=== PATIENT | female | born 1965 | race African-American/Black ===

== ENCOUNTER 2019-01-19 08:04 | Emergency (ER) | payer SELFPAY ==
[~2019-01-19] VITALS: Ht 165.1 cm; Wt 90.7 kg
[2019-01-19 08:15] VITALS: BP 139/84
--- NOTE | 2019-01-19 08:45 | PHYS DOC ---
Past History Past Medical History: Diabetes, High Cholesterol, Hypertension Past Surgical History: No Surgical History Alcohol Use: None Drug Use: None Adult General Chief Complaint Chief Complaint: FLANK PAIN HPI HPI 53-year-old female presents with left flank pain. The patient woke up this morning with this pain. She denies any trauma or falls. It is a deeper cramping pain. She is concerned because she has had kidney stones and UTIs in the past. She states that the pain feels similar. She denies nausea or vomiting. She has not had fever or chills. Review of Systems Review of Systems Constitutional: Denies fever or chills [] Eyes: Denies change in visual acuity, redness, or eye pain [] HENT: Denies nasal congestion or sore throat [] Respiratory: Denies cough or shortness of breath [] Cardiovascular: No additional information not addressed in HPI [] GI: Denies abdominal pain, nausea, vomiting, bloody stools or diarrhea [] : Denies dysuria or hematuria [] Musculoskeletal: Left flank pain[] Integument: Denies rash or skin lesions [] Neurologic: Denies headache, focal weakness or sensory changes [] Endocrine: Denies polyuria or polydipsia [] All other systems were reviewed and found to be within normal limits, except as documented in this note. Physical Exam Physical Exam Constitutional: Well developed, obese, well nourished, no acute distress, non- toxic appearance. [] HENT: Normocephalic, atraumatic, bilateral external ears normal, oropharynx moist, no oral exudates, nose normal. [] Eyes: PERRLA, EOMI, conjunctiva normal, no discharge. [] Neck: Normal range of motion, no tenderness, supple, no stridor. [] Cardiovascular:Heart rate regular rhythm, no murmur [] Lungs & Thorax: Bilateral breath sounds clear to auscultation [] Abdomen: Bowel sounds normal, soft, no tenderness, no masses, no pulsatile masses. [] Skin: Warm, dry, no erythema, no rash. [] Back: No tenderness, Left sided CVA tenderness. [] Extremities: No tenderness, no cyanosis, no clubbing, ROM intact, no edema. [] Neurologic: Alert and oriented X 3, normal motor function, normal sensory function, no focal deficits noted. [] Psychologic: Affect normal, judgement normal, mood normal. [] Current Patient Data Vital Signs Vital Signs Date Time Temp Pulse Resp B/P (MAP) Pulse Ox O2 Delivery O2 Flow Rate FiO2 01/19/19 08:15 Room Air 01/19/19 08:15 98.1 81 20 100 EKG EKG [] Radiology/Procedures Radiology/Procedures [] Impressions: EXAM: CT ABDOMEN/PELVIS WITHOUT CONTRAST. HISTORY: Left flank pain, renal stones. TECHNIQUE: Computed tomography of the abdomen and pelvis was performed without intravenous contrast. COMPARISON: None. FINDINGS: Lung windows through the visualized portions of the bases reveal no abnormality. Bone windows reveal no suspicious lesions. A cyst in the left renal lower pole measures 2.6 cm. No solid renal lesions are appreciated without contrast. There are no renal or ureteral calculi. There is no hydronephrosis. Hypoattenuation of the hepatic parenchyma indicates somewhat heterogeneous moderate diffuse hepatic steatosis. There is focal fatty sparing about the gallbladder fossa and scattered in the left lobe. Gallstones are noted. There is no pericholecystic inflammation or biliary dilatation. The pancreas, adrenal glands and spleen are unremarkable without contrast. There are no pathologically enlarged lymph nodes. A calcification along the right aspect of the uterus measures 1.7 cm and suggests a degenerated fibroid. The appendix is not inflamed. There is no small bowel obstruction. IMPRESSION: 1. No renal or ureteral calculi. No hydronephrosis. 2. Cholelithiasis without evidence of acute cholecystitis by CT. 3. Moderate, heterogeneous diffuse hepatic steatosis. 4. 1.7 cm calcified uterine fibroid. *One or more of the following individualized dose reduction techniques were utilized for this examination: 1. Automated exposure control. 2. Adjustment of the mA and/or kV according to patient size. 3. Use of iterative reconstruction technique. Electronically signed by: Tracie Martin MD (01/19/2019 9:28 AM) [facility] DICTATED AND SIGNED BY: GRUPO MARTIN MD DATE: [birth year]28 CC: ZAMZAM CARLISLE DO; CARROL LAZARO MD ~ Course & Med Decision Making Course & Med Decision Making Pertinent Labs and Imaging studies reviewed. (See chart for details) The patient's CT scan is negative for kidney stones. See official report for other incidental findings. Her urinalysis is negative for infection. This is likely musculoskeletal. I have given her 60 mg of Toradol IM. I believe the patient can manage his pain with Tylenol and ibuprofen. She is stable for discharge at this time. [] Dragon Disclaimer Dragon Disclaimer This electronic medical record was generated, in whole or in part, using a voice recognition dictation system. Departure Departure: Impression: Primary Impression: Left flank pain Additional Impressions: Kidney cysts Uterine fibroid Disposition: HOME, SELF-CARE Condition: STABLE Referrals: CARROL LAZARO MD (PCP) Patient Instructions: Flank Pain, [id number] Problem Qualifiers Additional Impressions: Uterine fibroid Uterine leiomyoma location: unspecified location Qualified Codes: D25.9 - Leiomyoma of uterus, unspecified ZAMZAM CARLISLE DO Jan 19, 2019 08:45
[2019-01-19] MEDS ORDERED: KETOROLAC 60 MG/2 ML VIAL. IM ONE ×2 (09:04→09:30)
--- NOTE | 2019-01-19 09:31 | RAD ---
EXAM: CT ABDOMEN/PELVIS WITHOUT CONTRAST. HISTORY: Left flank pain, renal stones. TECHNIQUE: Computed tomography of the abdomen and pelvis was performed without intravenous contrast. COMPARISON: None. FINDINGS: Lung windows through the visualized portions of the bases reveal no abnormality. Bone windows reveal no suspicious lesions. A cyst in the left renal lower pole measures 2.6 cm. No solid renal lesions are appreciated without contrast. There are no renal or ureteral calculi. There is no hydronephrosis. Hypoattenuation of the hepatic parenchyma indicates somewhat heterogeneous moderate diffuse hepatic steatosis. There is focal fatty sparing about the gallbladder fossa and scattered in the left lobe. Gallstones are noted. There is no pericholecystic inflammation or biliary dilatation. The pancreas, adrenal glands and spleen are unremarkable without contrast. There are no pathologically enlarged lymph nodes. A calcification along the right aspect of the uterus measures 1.7 cm and suggests a degenerated fibroid. The appendix is not inflamed. There is no small bowel obstruction. IMPRESSION: 1. No renal or ureteral calculi. No hydronephrosis. 2. Cholelithiasis without evidence of acute cholecystitis by CT. 3. Moderate, heterogeneous diffuse hepatic steatosis. 4. 1.7 cm calcified uterine fibroid. *One or more of the following individualized dose reduction techniques were utilized for this examination: 1. Automated exposure control. 2. Adjustment of the mA and/or kV according to patient size. 3. Use of iterative reconstruction technique. Electronically signed by: Tracie Martin MD (01/19/2019 9:28 AM) [facility]
[2019-01-19 11:26] LABS: BILIRUBIN,URINE NEG (NEG); CLARITY,URINE CLEAR; COLOR,URINE YELLOW; GLUCOSE,URINE NEG (NEG); NITRITE,URINE NEG (NEG); UROBILINOGEN,URINE 0.2 mg/dL (0.2 mg/dL)
== END 2019-01-19 10:00 | disposition home or self-care (01) ==
LOC: ER 08:04
DX: N28.1 Cyst of kidney, acquired (principal); D25.9 Leiomyoma of uterus, unspecified; K80.20 Calculus of gallbladder without cholecystitis without obstruction; E11.9 Type 2 diabetes mellitus without complications; E78.00 Pure hypercholesterolemia, unspecified; I10 Essential (primary) hypertension; Z87.440 Personal history of urinary (tract) infections; Z87.442 Personal history of urinary calculi
CPT/HCPCS: 74176; 81003; 96372; 99284; J1885

== ENCOUNTER 2019-03-14 23:41 | Emergency (ER) | payer OTHER ==
[~2019-03-14] VITALS: Ht 165.1 cm; Wt 90.7 kg
[2019-03-14] MEDS ORDERED: ONDANSETRON PF 4 MG/2 ML VIAL. ONE (23:51)
[2019-03-14] MEDS ORDERED: IV NORMAL SALINE 1,000ML 1,000 ML IV SCH (23:51)
[2019-03-15] MEDS ORDERED: ONDANSETRON PF 4 MG/2 ML VIAL. IV ONE
--- NOTE | 2019-03-15 00:06 | PHYS DOC ---
Past History Past Medical History: Diabetes, High Cholesterol, Hypertension Additional Past Surgical Histo: R foot Alcohol Use: None Drug Use: None Adult General Chief Complaint Chief Complaint: ABDOMINAL PAIN HPI HPI Patient is a 53 y/o AAF who arrives in the ED via EM. Pt states that this morning, she had surgery on her R foot, to correct a bunion. she states that she felt epigastric discomfort and nausea since after the surgery, and stasts she experiences a burning pain radiating across her chest occasionally. She has had nausea, but no vomiting, no diarrhea. Denies pleuritic pain or shortness of breath. There are no alleviating or exacerbating factors to her symptoms. Denies diaphoresis, or fevers. No cough. Patient states that she has had problems with "gas" in the past. The patient states that she normally does not do well with pain medication and she was prescribed oxycodone. She has been taking the oxycodone every 3 hours, as the physician/surgeon told the patient's not to get leg her pain get ahead of her, and they have been proactively taking the pain medication, even if she is not having significant pain. Review of Systems Review of Systems Constitutional: Denies fever or chills [] Eyes: Denies change in visual acuity, redness, or eye pain [] HENT: Denies nasal congestion or sore throat [] Respiratory: Denies cough or shortness of breath [] Cardiovascular: No additional information not addressed in HPI [] GI: Denies abdominal pain, other than localized to epigastric area, denies vomiting, bloody stools or diarrhea [] : Denies dysuria or hematuria [] Musculoskeletal: Denies back pain or joint pain [] Integument: Denies rash or skin lesions [] Neurologic: Denies headache, focal weakness or sensory changes [] Endocrine: Denies polyuria or polydipsia [] All other systems were reviewed and found to be within normal limits, except as documented in this note. Current Medications Current Medications Current Medications Medications (Trade) Dose Ordered Sig/Genet Start Time Stop Time Status Last Admin Dose Admin Multi-Ingredient Mouthwash/Gargle (Gi Cocktail) 20 ml 1X ONCE 03/15/19 00:00 03/15/19 00:01 UNV Ondansetron HCl (Zofran) 4 mg 1X ONCE 03/15/19 00:00 03/15/19 00:01 UNV Sodium Chloride 1,000 ml @ 1,000 mls/hr Q1H 03/14/19 23:51 03/15/19 00:50 UNV Allergies Allergies Allergies Coded Allergies Type Severity Reaction Last Updated Verified No Known Drug Allergies 01/19/19 No Physical Exam Physical Exam PHYSICAL EXAM: CONSTITUTIONAL: Well developed, well nourished HEAD: normocephalic, atraumatic EENT: PERRL, EOMI. Conjunctivae normal color, sclerae non-icteric; moist mucous membranes. NECK: Supple, non-tender; no meningismus. LUNGS: Lungs CTA, breathing even and unlabored. Normal air movement. HEART: Regular rate and rhythm, no murmur CHEST: No deformity; non-tender ABDOMEN: The abdomen is soft, there is focal epigastric tenderness to palpation, without rebound or guarding, normal bowel sounds are present, right upper quadrant is relatively nontender, Ordonez sign is absent, the lower abdomen is soft and non-tender, no masses or bruits. EXTREM: Normal ROM; no deformity, no calf tenderness. Normal pulses palpable in all extremities. There is no pedal edema. There is a postop shoe and dressing on the right foot. SKIN: No rash; no diaphoresis NEURO: Alert; normal speech and cognition; CN's grossly intact; strength grossly intact without focal deficit. BACK: No CVA TTP. Current Patient Data Lab Results Laboratory Tests Test 03/15/19 00:00 03/15/19 00:20 White Blood Count 12.0 x10^3/uL Red Blood Count 4.21 x10^6/uL Hemoglobin 12.5 g/dL Hematocrit 38.3 % Mean Corpuscular Volume 91 fL Mean Corpuscular Hemoglobin 30 pg Mean Corpuscular Hemoglobin Concent 33 g/dL Red Cell Distribution Width 14.3 % Platelet Count 339 x10^3/uL Neutrophils (%) (Auto) 69 % Lymphocytes (%) (Auto) 25 % Monocytes (%) (Auto) 6 % Eosinophils (%) (Auto) 0 % Basophils (%) (Auto) 0 % Neutrophils # (Auto) 8.3 x10^3uL Lymphocytes # (Auto) 3.0 x10^3/uL Monocytes # (Auto) 0.7 x10^3/uL Eosinophils # (Auto) 0.0 x10^3/uL Basophils # (Auto) 0.0 x10^3/uL Sodium Level 143 mmol/L Potassium Level 4.4 mmol/L Chloride Level 107 mmol/L Carbon Dioxide Level 29 mmol/L Anion Gap 7 Blood Urea Nitrogen 15 mg/dL Creatinine 1.3 mg/dL Estimated GFR (Cockcroft-Gault) 51.8 BUN/Creatinine Ratio 12 Glucose Level 127 mg/dL Calcium Level 8.8 mg/dL Total Bilirubin 0.2 mg/dL Aspartate Amino Transf (AST/SGOT) 17 U/L Alanine Aminotransferase (ALT/SGPT) 22 U/L Alkaline Phosphatase 91 U/L Troponin I Quantitative < 0.017 ng/mL Total Protein 6.9 g/dL Albumin 3.3 g/dL Albumin/Globulin Ratio 0.9 Lipase 87 U/L Urine Collection Type Unknown Urine Color Yellow Urine Clarity Clear Urine pH 6.0 Urine Specific Potter 1.020 Urine Protein Neg Urine Glucose (UA) Neg mg/dL Urine Ketones (Stick) Neg mg/dL Urine Blood Neg Urine Nitrite Neg Urine Bilirubin Neg Urine Urobilinogen Dipstick 0.2 mg/dL Urine Leukocyte Esterase Neg Urine RBC 0 /HPF Urine WBC Occ /HPF Urine Squamous Epithelial Cells Few /LPF Urine Bacteria 0 /HPF Current Medications Medications (Trade) Dose Ordered Sig/Genet Route PRN Reason Start Time Stop Time Status Last Admin Dose Admin Ondansetron HCl (Zofran) 4 mg STK-MED ONCE .ROUTE 03/14/19 23:51 03/14/19 23:51 DC Multi-Ingredient Mouthwash/Gargle (Gi Cocktail) 20 ml 1X ONCE PO 03/15/19 00:15 03/15/19 00:30 DC Sodium Chloride 1,000 ml @ 1,000 mls/hr Q1H IV 03/14/19 23:51 03/15/19 00:50 DC 03/15/19 00:23 Ondansetron HCl (Zofran) 4 mg 1X ONCE IV 03/15/19 00:00 03/15/19 00:30 DC 03/15/19 00:09 EKG EKG []Normal sinus rhythm a rate of 61 bpm with sinus arrhythmia, normal axis, normal intervals. There are no acute ischemic ST/T changes. Radiology/Procedures Radiology/Procedures [] Course & Med Decision Making Course & Med Decision Making Pertinent Labs and Imaging studies reviewed. (See chart for details) []1:00 AM: The patient's condition remains stable. She is feeling somewhat better. I discussed test results, limiting her pain medication, as needed, the need for close follow-up, and return precautions. Dragon Disclaimer Dragon Disclaimer This electronic medical record was generated, in whole or in part, using a voice recognition dictation system. Departure Departure: Impression: Primary Impression: Nausea Additional Impression: Epigastric pain Disposition: HOME, SELF-CARE Condition: STABLE Referrals: CARROL LAZARO MD (PCP) Patient Instructions: Abdominal Pain, Nausea, Adult Scripts Ondansetron Hcl (ZOFRAN) 4 Mg Tablet 1 TAB PO Q6HRS PRN for NAUSEA, #20 TAB Prov: YI BRITTON MD 03/15/19 Problem Qualifiers YI BRITTON MD Mar 15, 2019 00:06
[2019-03-15] MEDS ORDERED: LIDO:MAALOX 1:1 20 ML SINGLE DOSE. PO ONE (00:15)
[2019-03-15] MEDS ORDERED: ONDA4TAB7 PO (00:17)
[2019-03-15 00:26] LABS: BASO % 0 % (0-3); EOS % 0 % (0-3); HEMATOCRIT 38.3 % (36.0-47.0); HEMOGLOBIN 12.5 g/dL (12.0-15.5); LYMPH % 25 % (24-48); MEAN CORPUSCULAR HEMOGLOBIN 30 pg (25-35); MEAN CORPUSCULAR HGB CONC 33 g/dL (31-37); MEAN CORPUSCULAR VOLUME 91 fL (79-100); MONO # 0.7 x10^3/uL (0.0-1.1); MONO % 6 % (0-9); NEUT # 8.3 x10^3uL (1.8-7.7); NEUT % 69 % (31-73); PLATELET COUNT 339 x10^3/uL (140-400); RED BLOOD COUNT 4.21 x10^6/uL (3.50-5.40); RED CELL DISTRIBUTION WIDTH 14.3 % (11.5-14.5)
[2019-03-15 00:37] LABS: ALBUMIN 3.3 g/dL (3.4-5.0); ALBUMIN/GLOBULIN RATIO 0.9 (1.0-1.7); CALCIUM 8.8 mg/dL (8.5-10.1); CREATININE 1.3 mg/dL (0.6-1.0); GFR 51.8; POTASSIUM 4.4 mmol/L (3.5-5.1); TOTAL BILIRUBIN 0.2 mg/dL (0.2-1.0); TOTAL PROTEIN 6.9 g/dL (6.4-8.2)
[2019-03-15 00:53] LABS: BACTERIA,URINE 0 /HPF (0-FEW); BILIRUBIN,URINE NEG (NEG); CLARITY,URINE CLEAR; COLOR,URINE YELLOW; GLUCOSE,URINE NEG (NEG); NITRITE,URINE NEG (NEG); RBC,URINE 0 /HPF (0-2); SQUAMOUS EPITHELIAL CELL,UR FEW /LPF; UROBILINOGEN,URINE 0.2 mg/dL (0.2 mg/dL); WBC,URINE OCC /HPF (0-4)
[2019-03-15 01:15] VITALS: BP 108/60
--- NOTE | 2019-03-15 11:25 | EKG ---
[address] [address] Test Date: 2019-03-15 Test Time: 00:51:22 Pat Name: MAHOGANY FITZGERALD Department: Room: Gender: F [employer]: MICHAELA : 1965 Requested By: YI BRITTON Order Number: [id number] Reading MD: Paulo Owen MD Measurements Intervals [place] Rate: 61 P: 86 MI: 178 QRS: 149 QRSD: 84 T: 148 QT: 438 QTc: 442 Interpretive Statements SINUS RHYTHM LIMB LEAD MISPLACEMENT Electronically Signed On 03-15-2019 16:06:21 CDT by Paulo Owen MD
== END 2019-03-15 01:25 | disposition home or self-care (01) ==
LOC: ER 23:41
DX: R10.13 Epigastric pain (principal); R11.0 Nausea; E11.9 Type 2 diabetes mellitus without complications; E78.00 Pure hypercholesterolemia, unspecified; I10 Essential (primary) hypertension; Z98.890 Other specified postprocedural states
CPT/HCPCS: 36415; 80053; 81001; 83690; 84484; 85025; 93005; 96374; 99285; J2405; J7030